=== PATIENT | female | born 1980 | race Caucasian/White ===

== ENCOUNTER 2016-11-30 18:10 | Emergency (ER) | payer MEDICAID ==
[2016-11-30 18:55] LABS: Urine Bilirubin Negative (NEGATIVE); Urine Blood 250 /ul (NEGATIVE); Urine Ketone Negative (NEGATIVE); Urine Nitrite Negative (NEGATIVE); Urine Protein Negative (NEGATIVE); Urine Urobilinogen Normal (NORMAL)
[2016-11-30 19:07] LABS: Hematocrit 35.7 % (37.0-47.0); Hemoglobin 12.1 gm/dL (12.5-16.0); Mean Cell Volume 89.7 fl (78-100); Mean Corpuscular Hemoglobin 30.4 pg (27-31); Mean Corpuscular Hgb Conc 33.9 g/dl (32-36); Mean Platelet Volume 9.8 fl (6.0-9.5); Neutrophil # 4.6 K/mm3 (1.3-6.0); Neutrophil % 67.2 % (42-75.0); Platelet Count 312 K/mm3 (150-450); Red Blood Count 3.98 M/mm3 (4.2-5.4); Red Cell Distribution Width 12.7 % (11.5-14.0); White Blood Count 6.9 K/mm3 (4.0-10.5)
[2016-11-30 19:19] LABS: Albumin * 2.9 gm/dl (3.4-5.0); Anion Gap 14.3 mmol/L (6.8-13.8); BUN/Creatinine Ratio 22.2 (9.0-21.6); Bilirubin, Total 0.1 mg/dL (0.0-1.1); Ca. Corrected For Albumin 9.1 mg/dL (8.4-10.2); Calcium * 8.5 mg/dL (7.9-10.9); Carbon Dioxide 23.1 mmol/L (24-32.6); Potassium 4.4 mmol/L (3.4-4.6); Total Protein 6.8 gm/dL (6.2-8.2)
[2016-11-30 19:22] LABS: Urine Appearance Cloudy; Urine Bacteria TRACE; Urine Color Yellow; Urine WBC TRACE /hpf (0-5)
[2016-11-30] MEDS ORDERED: KETOROLAC TROMETHAMINE 60 MG/2 ML VIAL IM ONE ×2 (20:03)
--- NOTE | 2016-11-30 20:09 | ERNOTE ---
ER Female HPI Stated Complaint: CRAMPS,FEVER X SEVERAL DAYS Presenting Symptoms: pelvic pain Time Seen by Provider: 11/30/16 19:43 Source: patient Exam Limitations: no limitations Immunizations: IMMUNIZATION HX Immunizations Up to Date Yes History of Influenza Vaccine No Hx Pneumococcal Vaccination No Allergies/Adverse Reactions: Allergies No Known Allergies Allergy (Unverified 11/30/16 18:23) Home Medications: HOME MEDICATIONS Ketorolac Tromethamine 10 mg PO TID PRN #10 tablet 11/30/16 [Last Taken Unknown] Medroxyprogesterone Acetate [Depo-Provera Contraceptive] 150 mg IM 11/30/16 [ Last Taken Unknown] Nabumetone 750 mg PO BID #20 tablet 11/30/16 [Last Taken Unknown] - History of Present Illness Narrative: Pt states she has had pelvic/ uterine cramping for 1 week and for the past 3 days has had a fever (up to 100) Timing: Present: getting worse Quality: Present: moderate, severe, cramping, stabbing Onset Location: Present: suprapubic Radiation: Present: none Activities at Onset: Present: none Prior Abdominal Problems: Present: similar symptoms, other - Crohns flares Modifying Factors - (Improves): Present: other - walking Modifying Factors - (Worsens): Present: lying down Review of Systems - Review of Systems Constitutional: Present: fever - temp up to 100, chills. Absent: recent illness EYE: Present: no symptoms reported ENT: Present: no symptoms reported Respiratory: Present: no symptoms reported Cardiology: Present: no symptoms reported Gastrointestinal/Abdominal: Absent: nausea, vomiting, diarrhea, constipation Genitourinary: Present: See HPI. Absent: dysuria Musculoskeletal: Present: no symptoms reported Skin: Present: no symptoms reported Neurological: Present: no symptoms reported Endocrine: Present: no symptoms reported Hematologic/Lymphatic: Present: no symptoms reported - Patient's Past Medical History Patient History - Medical: Other Patient History - Cardiac/Respiratory: No pertinent hx Patient History - Cancer: No Hx of Cancer Patient History - Surgical Procedures: Cholecystectomy, Colon Resection Patient History - Other: None LMP (females 10-50): 1 month - Social History Living Situations: alone Abuse History: No History of abuse Psych History: No pertinent hx Smoking Status: Current every day smoker Have you smoked in the past 12 months: Yes Patient requests Smoking Cessation Consult: No Alcohol Use: none Drug Use: none - Immunizations Immunizations Up to Date: Yes Hx Pneumococcal Vaccination: No History of Influenza Vaccine: No Physical Exam - Physical Exam General Appearance: Present: wd/wn, alert, mild distress, thin Head Exam: Present: normal inspection, no evidence of injury Eye Exam: Normal inspection: bilateral Ears, Nose, Throat: Present: normal ENT inspection Neck: Present: normal inspection, nontender, supple Respiratory: Present: no respiratory distress, no accessory muscle use Gastrointestinal/Abdominal: Present: normal bowel sounds, tenderness - suprapubic midline. Absent: distended, guarding, rebound Back Exam: Present: normal inspection, normal range of motion, no CVA tenderness Extremity Exam: Present: normal inspection, normal range of motion, no edema Neurological Exam: Present: alert, oriented, normal mood/affect, no motor/ sensory deficits Skin Exam: Present: normal color, warm/dry Lymphatic Exam: Present: no adenopathy ED Progress - Results and Orders Patient's Lab Results:: I have reviewed the patient's lab results. Results and Orders: Laboratory Tests 11/30/16 11/30/16 11/30/16 19:03 19:03 19:17 WBC 6.9 Hgb 12.1 L Hct 35.7 L Plt Count 312 Sodium 139 Potassium 4.4 Chloride 106 Carbon Dioxide 23.1 L Anion Gap 14.3 H BUN 14 Creatinine 0.63 Random Glucose 93 Calcium 8.5 Total Bilirubin 0.1 AST 13 ALT 15 L Alkaline Phosphatase 68 Total Protein 6.8 Albumin 2.9 L Urine Color Urine Appearance Urine pH Ur Specific [place] Urine Protein Urine Glucose (UA) Urine Ketones Urine Blood Urine Nitrate Urine Bilirubin Urine Urobilinogen Ur Leukocyte Esterase Urine RBC Urine WBC Ur Epithelial Cells Urine Bacteria Urine Culture Comments Urine HCG, Qual Negative 11/30/16 19:17 WBC Hgb Hct Plt Count Sodium Potassium Chloride Carbon Dioxide Anion Gap BUN Creatinine Random Glucose Calcium Total Bilirubin AST ALT Alkaline Phosphatase Total Protein Albumin Urine Color Yellow Urine Appearance Cloudy Urine pH 7.0 Ur Specific [place] 1.020 Urine Protein Negative Urine Glucose (UA) Negative Urine Ketones Negative Urine Blood 250 H Urine Nitrate Negative Urine Bilirubin Negative Urine Urobilinogen Normal Ur Leukocyte Esterase Negative Urine RBC 10-25 H Urine WBC Trace H Ur Epithelial Cells 0-5 Urine Bacteria Trace Urine Culture Comments No culture indicated Urine HCG, Qual - Vital Signs Patient's Vital Signs:: I have reviewed the patient's vital signs. Vital Signs: Vital Signs 11/30/16 11/30/16 18:16 19:32 Temperature 37.6 C H 37.2 C Pulse Rate 100 79 Respiratory 14 19 Rate Blood Pressure 90/58 99/56 O2 Sat by Pulse 97 96 Oximetry - CT/Ultrasound CT/Ultrasound Narrative: Pelvic abdominal and transvaginal U/S: Impression: Fibroid uterus. Mildly complex left ovarian cyst. Follow-up ultrasound in 6 weeks could be considered. Additional findings and comments are as above. Electronically signed by Boris Fierro D.O.. - Progress/Reassessment Chief Complaint: Genitourinary Problem Progress:: Improved Departure Clinical Impression: Ovarian cyst Uterine fibroid Qualifiers: Uterine leiomyoma location: intramural Qualified Code(s): D25.1 - Intramural leiomyoma of uterus - Departure Disposition: Home Follow Up Needed Condition: Fair Instructions: Uterine Fibroids, [id number], Ovarian Cyst, [id number] Additional Instructions: See your clinical technician as soon as possible. Take medications as needed. Fill the ketorolac if possible and only fill the nabumatone if unable to fill the ketorolac. Referrals: Frankie Lara DO [Primary Care Provider] - Prescriptions: Ketorolac Tromethamine 10 mg PO TID PRN #10 tablet PRN Reason: Pain Nabumetone 750 mg PO BID #20 tablet
[2016-12-01] VITALS: BP 99/56
== END 2016-11-30 23:58 | disposition home or self-care (01) ==
LOC: ER 18:10
DX: N83.202 Unspecified ovarian cyst, left side (principal); D25.1 Intramural leiomyoma of uterus; F17.200 Nicotine dependence, unspecified, uncomplicated